=== PATIENT | female | born 1985 | race Caucasian/White ===

== ENCOUNTER 2017-06-23 10:50 | Emergency (ER) | payer OTHER ==
[2017-06-23 11:37] VITALS: BP 124/83
== END 2017-06-23 11:37 | disposition home or self-care (01) ==
LOC: ED 10:50
DX: T63.481A Toxic effect of venom of other arthropod, accidental (unintentional), initial encounter (principal); R60.0 Localized edema; Y92.89 Other specified places as the place of occurrence of the external cause

== ENCOUNTER 2018-10-16 07:58 | Emergency (ER) | payer OTHER ==
[~2018-10-16] VITALS: Ht 154.9 cm; Wt 65.3 kg
[2018-10-16 08:16] VITALS: Ht 154.9 cm; Wt 65.3 kg
[2018-10-16 11:01] VITALS: BP 104/61
== END 2018-10-16 11:34 | disposition home or self-care (01) ==
LOC: ED 07:58
DX: O20.0 Threatened abortion (principal)
CPT/HCPCS: Q0092

== ENCOUNTER 2019-03-01 12:40 | Emergency (ER) | payer OTHER ==
[~2019-03-01] VITALS: Ht 154.9 cm; Wt 64.0 kg
[2019-03-01 12:42] VITALS: Ht 154.9 cm; Wt 64.0 kg
[2019-03-01 13:25] LABS: BASOPHIL % 0.3 % (0-2); PLATELET COUNT 273 x10^3mcL (130-400); RED CELL DISTRIBUTION WIDTH 13.9 % (11.5-14.5)
[2019-03-01 13:40] LABS: CALCIUM 8.9 mg/dL (8.5-10.1); CARBON DIOXIDE 23.7 mmol/L (21-32); CHLORIDE SERUM 105 mmol/L (98-107); CREATININE SERUM 0.5 mg/dL (0.6-1.0); GFR1 > 60 mL/min; GLUCOSE SERUM 93 mg/dL (74-106); POTASSIUM SERUM 3.7 mmol/L (3.5-5.1); SODIUM SERUM 139 mmol/L (136-145)
[2019-03-01 13:49] LABS: microscopic required? YES; urine erythrocyte NEGATIVE (NEGATIVE)
[2019-03-01 13:51] LABS: ALKALINE PHOSPHATASE 66 U/L (46-116); ALT/SGPT 34 U/L (14-59); AST/SGOT 20 U/L (15-37); BILIRUBIN TOTAL 0.3 mg/dL (0.20-1.00); LIPASE 151 IU/L (73-393); TOTAL PROTEIN, SERUM 6.9 g/dL (6.4-8.2)
[2019-03-01 14:45] VITALS: BP 117/48
== END 2019-03-01 15:08 | disposition home or self-care (01) ==
LOC: ED 12:40
PROVIDERS: Emergency Medicine
DX: O21.9 Vomiting of pregnancy, unspecified (principal); O23.41 Unspecified infection of urinary tract in pregnancy, first trimester; Z98.890 Other specified postprocedural states; Z3A.12 12 weeks gestation of pregnancy
CPT/HCPCS: J2765; J7042